=== PATIENT | male | born 1965 | race Caucasian/White ===

== ENCOUNTER 2016-09-11 14:54 | Emergency (ER) | payer OTHER | END 2016-09-11 17:44 | disposition home or self-care (01) | DX: S61.411A Laceration without foreign body of right hand, initial encounter (principal); W26.0XXA Contact with knife, initial encounter; Y92.009 Unspecified place in unspecified non-institutional (private) residence as the place of occurrence of the external cause; I10 Essential (primary) hypertension; E11.9 Type 2 diabetes mellitus without complications; Z79.84 Long term (current) use of oral hypoglycemic drugs ==

== ENCOUNTER 2016-11-13 11:44 | Day surgery (SDC) | payer OTHER ==
[2016-11-13] MEDS ORDERED: LACTATED RINGERS 1,000 ML IV ONE (11:56)
[2016-11-13] MEDS ORDERED: fentaNYL 250 MCG/5 ML VIAL IVP ONE (13:53)
[2016-11-13] MEDS ORDERED: MIDAZOLAM 2 MG/2 ML VIAL IVP ONE (13:53)
== END 2016-11-13 11:45 | disposition home or self-care (01) ==
PROC: 0DJD8ZZ Inspection of Lower Intestinal Tract, Via Natural or Artificial Opening Endoscopic (ICD-10-PCS; principal; 2016-11-13 13:00)
DX: Z12.11 Encounter for screening for malignant neoplasm of colon (principal); K57.30 Diverticulosis of large intestine without perforation or abscess without bleeding; K64.8 Other hemorrhoids; K64.4 Residual hemorrhoidal skin tags; E11.9 Type 2 diabetes mellitus without complications; Z79.84 Long term (current) use of oral hypoglycemic drugs; Z86.73 Personal history of transient ischemic attack (TIA), and cerebral infarction without residual deficits; Z83.3 Family history of diabetes mellitus; Z92.3 Personal history of irradiation; Z85.118 Personal history of other malignant neoplasm of bronchus and lung; Z92.21 Personal history of antineoplastic chemotherapy; Z82.49 Family history of ischemic heart disease and other diseases of the circulatory system; Z82.62 Family history of osteoporosis; Z80.9 Family history of malignant neoplasm, unspecified; Z84.1 Family history of disorders of kidney and ureter
CPT/HCPCS: 45378; J3010; J7120

== ENCOUNTER 2022-12-04 10:22 | Outpatient (CLI) | payer OTHER ==
--- NOTE | 2022-12-04 15:40 | MRI Report ---
PROCEDURE: MRI cervical spine without contrast INDICATIONS: CERVICALGIA TECHNIQUE: Noncontrast sagittal T1 spin echo and T2 fast spin echo, sagittal STIR, foraminal oblique sagittal T2 fast spin echo, and axial gradient echo or T2 fast spin echo through the cervical spine. COMPARISON: CT cervical spine 10/01/2014 FINDINGS: Image quality: Excellent. Alignment and Curvature: There is normal bony alignment. Bone Marrow: C5-6 interbody fusion with posterior lsahawn and screw instrumentation. C6-7 interbody fusio n with anterior plate and screw instrumentation. Both levels show appropriate graft incorporation. Spinal Cord: Visualized spinal cord has normal size and signal. No cerebellar tonsillar herniation. Paraspinous Soft Tissues: No paravertebral masses. Prevertebral soft tissues are normal in thicknes s. C2-C3: Disc height is maintained. Right-sided uncovertebral joint hypertrophy results in mild right- sided foraminal stenosis appear no central stenosis C3-C4: Disc space narrowing and posterior disc osteophyte complex with hypertrophic uncovertebral j oints results in mild central stenosis. Moderate left and right foraminal stenosis. C4-C5: Disc space narrowing with posterior disc osteophyte complex flattens the ventral surface cord and results in moderate central stenosis. Mild right and moderate left foraminal stenosis C5-C6: Discectomy and fusion. No central stenosis. No foraminal stenosis. C6-C7: Discectomy and fusion. No central or foraminal stenosis C7-T1: Normal in appearance. IMPRESSION: Degenerative disc disease and arthropathy results in moderate central stenosis C4-5 with flattening t he ventral cervical cord. Instrumented discectomy and fusion C5-6 and C6-7 with good graft incorporation Reviewed by: Brock Sarah MD on 12/04/2022 2:39 PM [facility] Approved by: Brock Sarah MD on 12/04/2022 2:39 PM [facility] Station ID: [id number]
== END 2022-12-04 10:23 | disposition home or self-care (01) ==
LOC: DI 10:22
PROVIDERS: ATTEND Student in an Organized Health Care Education/Training Program
DX: M50.321 Other cervical disc degeneration at C4-C5 level (principal); M48.02 Spinal stenosis, cervical region; Z98.1 Arthrodesis status